=== PATIENT | female | born 1990 | race Asian ===

== ENCOUNTER 2023-03-10 07:41 | Outpatient (CLI) | payer BC | END 2023-03-10 07:42 | disposition home or self-care (01) | LOC: NM 07:41 | PROVIDERS: ATTEND Internal Medicine Endocrinology, Diabetes & Metabolism | DX: E05.90 Thyrotoxicosis, unspecified without thyrotoxic crisis or storm (principal); E04.9 Nontoxic goiter, unspecified | CPT/HCPCS: 78014; A9516 ==

== ENCOUNTER 2023-04-15 09:41 | Outpatient (CLI) | payer BC | END 2023-04-15 09:42 | disposition home or self-care (01) | LOC: SCSMRI 09:41 | DX: E05.00 Thyrotoxicosis with diffuse goiter without thyrotoxic crisis or storm (principal) | CPT/HCPCS: 70543 ==